=== PATIENT | male | born 1980 | race Caucasian/White ===

== ENCOUNTER 2018-03-12 15:48 | Emergency (ER) | payer OTHER ==
[~2018-03-12] VITALS: Ht 180.3 cm; Wt 65.9 kg
[2018-03-12 15:52] VITALS: TEMP 97.3
[2018-03-12 18:20] VITALS: BP 127/85; PULSE 102
== END 2018-03-12 18:41 | disposition short-term general hospital (02) ==
LOC: COL.ER 15:48
DX: S82.301A Unspecified fracture of lower end of right tibia, initial encounter for closed fracture (principal); S82.831A Other fracture of upper and lower end of right fibula, initial encounter for closed fracture; Z23 Encounter for immunization; W20.8XXA Other cause of strike by thrown, projected or falling object, initial encounter; Y92.009 Unspecified place in unspecified non-institutional (private) residence as the place of occurrence of the external cause
CPT/HCPCS: J0690; J1170; J7030